=== PATIENT | male | born 1975 | race African-American/Black ===

== ENCOUNTER 2025-09-12 14:07 | Emergency (ER) | payer MEDICAID ==
[~2025-09-12] VITALS: Ht 175.3 cm; Wt 61.4 kg
[2025-09-12] MEDS: PB/HYOSCY/ATR/SCOP/LIDO/MAALOX 55 ML BOTTLE PO ONE (14:50)
[2025-09-12 15:27] LABS: RED BLOOD CELL COUNT(AUTO) 5.38 MIL/uL (4.50-5.90); RED CELL DISTRIBUTION WIDTH 13.3 % (11.5-14.5); WHITE BLOOD COUNT (AUTO) 5.6 K/uL (4.5-11.0)
[2025-09-12 15:32] LABS: CALCIUM, TOTAL 9.2 mg/dL (8.8-10.5); CREATININE 1.10 mg/dL (0.60-1.30); GLOMERULAR FILTR. RATE CALC > 60 mL/min (>60); GLUCOSE,RANDOM 83 mg/dL (70-110); SODIUM SERUM 138 mmol/L (136-145); UREA NITROGEN, BLOOD 12 mg/dL (7-18)
[2025-09-12 15:33] LABS: ASPARTATE AMINOTRANSFERASE 18.0 U/L (15-37); TOTAL PROTEIN, SERUM 8.0 g/dL (6.4-8.2)
[2025-09-12 15:37] LABS: TROPONIN I-HIGH SENSITIVITY 4 ng/L (<76)
[2025-09-12 15:46] LABS: PLATELET COUNT (AUTO) 209 K/uL (150-450); PLATELET MORPHOLOGY COMMENT LARGE PLTS PRESENT
[2025-09-12 15:47] LABS: RBC MORPHOLOGY COMMENT NORMAL RBC MORPH
[2025-09-12 17:08] LABS: TROPONIN I-HIGH SENSITIVITY 4 ng/L (<76)
[2025-09-12 17:20] VITALS: BP 132/91; PULSE 78; RESP 28; TEMP 97; O2SAT 100
[2025-09-12] MEDS ORDERED: FAMO20 PO (17:22)
== END 2025-09-12 17:50 | disposition home or self-care (01) ==
LOC: EMS 14:07
DX: R07.89 Other chest pain (principal); R06.02 Shortness of breath; K21.00 Gastro-esophageal reflux disease with esophagitis, without bleeding; F12.90 Cannabis use, unspecified, uncomplicated; Z87.891 Personal history of nicotine dependence
CPT/HCPCS: 71045; 80048; 80076; 83690; 84484; 85025; 93005; 99285; 36415-L1; 36415-TC